=== PATIENT | female | born 1955 | race Two or more races ===

== ENCOUNTER 2018-07-16 11:33 | Outpatient (CLI) | payer OTHER ==
[~2018-07-16 11:33] MED LIST: CEFTIN250 MG/5 M PO; PEPCID40 MG PO; SINGULAIR 5MG5 MG PO; ULTRAM50 MG PO; ZOFRAN4 MG PO
== END 2018-07-16 11:38 | disposition home or self-care (01) ==
LOC: MAMO-SONO 11:33
DX: Z12.31 Encounter for screening mammogram for malignant neoplasm of breast (principal); N64.89 Other specified disorders of breast

== ENCOUNTER 2018-08-05 11:29 | Outpatient (CLI) | payer OTHER | END 2018-08-05 11:46 | disposition home or self-care (01) | LOC: NUCLEAR 11:29 | DX: I82.C11 Acute embolism and thrombosis of right internal jugular vein (principal); I67.89 Other cerebrovascular disease ==

== ENCOUNTER 2020-07-20 07:55 | Outpatient (CLI) | payer OTHER | END 2020-07-20 08:02 | disposition home or self-care (01) | LOC: MAMO-SONO 07:55 | PROVIDERS: ATTEND Surgery | DX: Z12.31 Encounter for screening mammogram for malignant neoplasm of breast (principal); N60.02 Solitary cyst of left breast; N60.11 Diffuse cystic mastopathy of right breast; N60.12 Diffuse cystic mastopathy of left breast ==

== ENCOUNTER → 2021-08-05 | Emergency (ER) | payer OTHER ==
[~2021-08-05] VITALS: Ht 160 cm; Wt 70.3 kg
[~2021-08-05] MED LIST changes: +ETODOLAC500 M1; +TYLENOL ARTHRI650 MG
== END | disposition home or self-care (01) ==
LOC: ER 15:52
DX: M25.561 Pain in right knee (principal)

== ENCOUNTER 2022-08-07 09:28 | Outpatient (CLI) | payer OTHER | END 2022-08-07 09:29 | disposition home or self-care (01) | LOC: MAMO-SONO 09:28 | PROVIDERS: ATTEND Surgery | DX: N60.11 Diffuse cystic mastopathy of right breast (principal); N60.12 Diffuse cystic mastopathy of left breast ==

== ENCOUNTER 2023-12-10 11:00 | Outpatient (CLI) | payer OTHER | END 2023-12-10 11:11 | disposition home or self-care (01) | LOC: MAMO-SONO 11:00 | DX: Z12.31 Encounter for screening mammogram for malignant neoplasm of breast (principal); N63.0 Unspecified lump in unspecified breast; R92.0 Mammographic microcalcification found on diagnostic imaging of breast ==

== ENCOUNTER 2025-06-10 09:47 | Outpatient (CLI) | payer OTHER | END 2025-06-10 09:54 | disposition home or self-care (01) | LOC: MAMO-SONO 09:47 | DX: Z12.31 Encounter for screening mammogram for malignant neoplasm of breast (principal) ==